=== PATIENT | female | born 1950 | race Caucasian/White ===

== ENCOUNTER 2016-10-03 06:28 | Day surgery (SDC) | payer MEDICARE ==
[~2016-10-03 06:28] MED LIST: Buffered Lidocaine 1% SYR 3ML* 3 ML/SYR SYRINGE INTRADERM ONE; Famotidine IV* 10 MG/ML 2 ML (20 mg) IV ONE; Metoclopramide TAB* 10 MG PO ONE
[2016-10-03] MEDS ORDERED: fentaNYL* 50 MCG/ML 2 ML VIAL (100 MCG VIAL) ONE (07:16)
[2016-10-03] MEDS ORDERED: Ondansetron INJ* 2 MG/ML VIAL ONE (07:16)
[2016-10-03] MEDS ORDERED: Ketorolac INJ* 30 MG/ML 1 ML VIAL ONE (07:16)
[2016-10-03] MEDS ORDERED: Midazolam* 1 MG/ML 5 ML VIAL (5 MG) ONE (07:16)
[2016-10-03] MEDS ORDERED: Dexamethasone IV* 4 MG/ML 1 ML (4 MG) ONE (07:16)
[2016-10-03] MEDS ORDERED: Lidocaine 2% PF * 5 ML VIAL ONE (07:16)
[2016-10-03] MEDS ORDERED: KETAMINE HCL* 50 MG/ML 10 ML VIAL ONE (07:16)
[2016-10-03] MEDS ORDERED: Propofol* 10 MG/ML 20 ML BTL IV PUSH ONE (07:16)
[2016-10-03] MEDS ORDERED: Buffered Lidocaine 1% SYR 3ML* 3 ML/SYR SYRINGE ONE (07:18)
[2016-10-03] MEDS ORDERED: Clindamycin 900 MG IVPREMIX(* 900 MG/50 ML SDV IV ONE (07:18)
[2016-10-03] MEDS ORDERED: Metoclopramide TAB* 10 MG ONE (07:18)
[2016-10-03] MEDS ORDERED: Famotidine IV* 10 MG/ML 2 ML (20 mg) ONE (07:18)
[2016-10-03] MEDS ORDERED: Bupivacaine 0.5% SDV PF* 30 ML VIAL ONE (07:46)
[2016-10-03] MEDS ORDERED: Lidocaine 2% PF* 10 ML AMP ONE (08:00)
[2016-10-03] MEDS ORDERED: oxyCODONE/Acetamin 5/325 MG* TAB PO PRN (08:37)
[2016-10-03] MEDS ORDERED: Ondansetron INJ* 2 MG/ML VIAL IV PRN (08:37)
[2016-10-03] MEDS ORDERED: fentaNYL* 50 MCG/ML 2 ML VIAL (100 MCG VIAL) IV PRN (08:37)
[2016-10-03] MEDS ORDERED: HYDROmorphone INJ* 1 MG/ML CARPUJECT SYRINGE IV PRN (08:37)
[2016-10-03] MEDS ORDERED: oxyCODONE/Acetamin 5/325 MG* TAB ONE (09:41)
[2016-10-03 11:41] VITALS: BP 135/80
--- NOTE | 2016-10-04 01:42 | OP ---
DATE OF OPERATION: 10/03/16 - [facility] DATE OF : 46 SURGEON: Alfredo Barajas MD FUEL MANAGER: Rozina Mercado PA-C ANESTHESIOLOGIST: Morales Pablo MD ANESTHESIA: MAC PRE-OP DIAGNOSIS: Painful mass, plantar aspect, left first MTP joint. POST-OP DIAGNOSIS: Painful mass, plantar aspect, left first MTP joint, possible heterotopic bone fragment. OPERATIVE PROCEDURE: Excision of mass, left plantar foot. DESCRIPTION OF PROCEDURE: The patient was taken to the operating room where I made a 3 cm longitudinal incision along the medial capsule of the first MTP joint. I dissected plantarward outside of the capsule and the sesamoid to locate the 1 x 1 flap bony foreign body. This was excised. I did not feel any attachment or other areas involved. This was irrigated and we closed with subcutaneous tissue with Vicryl, nylon for the skin and a compression dressing applied. [id number]/[facility] #: [id number] MTDD
== END 2016-10-03 11:45 | disposition home or self-care (01) ==
LOC: OR 06:28
PROVIDERS: ATTEND Orthopaedic Surgery
DX: R22.9 Localized swelling, mass and lump, unspecified (principal); M79.672 Pain in left foot; F17.210 Nicotine dependence, cigarettes, uncomplicated
CPT/HCPCS: 88304; 88311; A9270-GY; J1100; J1885; J2001; J2250; J2405; J2704; J3010

== ENCOUNTER 2018-04-12 08:39 | Inpatient (IN) | payer MEDICARE ==
--- NOTE | 2018-03-28 21:22 | HP ---
HISTORY AND PHYSICAL: DATE OF SURGERY: 04/12/18. DATE OF OFFICE VISIT: 03/19/18. SURGEON: Rossana Clark MD.* (DICTATED BY CHRISTOPHER COATS) PROCEDURE: Right total hip arthroplasty. CHIEF COMPLAINT: Right hip pain. HISTORY OF PRESENT ILLNESS: Ms. Garza is a 67-year-old female with complaints of right hip pain secondary to end-stage osteoarthritis. She has failed conservative treatment and elected to proceed with a right total hip arthroplasty, which is scheduled for 04/12/18. PAST MEDICAL HISTORY: Hypertension. PAST SURGICAL HISTORY: 1. Cholecystectomy. 2. Laparoscopy for tubal ligation. CURRENT MEDICATIONS: 1. Lisinopril/hydrochlorothiazide 10/12.5 daily. 2. Oxycodone 5 mg as needed. ALLERGIES: To PENICILLIN, SULFA, and BEE STINGS. FAMILY HISTORY: Uterine cancer. SOCIAL HISTORY: She is a 67-year-old female. She lives alone. She smokes approximately 4 cigarettes a day. Denies use of drugs or alcohol. REVIEW OF SYSTEMS: A complete 14-point review of systems was reviewed with the patient. She denies history of DVT, PE, hepatitis, HIV or anesthesia problems. PHYSICAL EXAMINATION GENERAL: She is a well-developed, well-nourished, in no acute distress. VITAL SIGNS: She stands 64 inches tall, weighs 199 pounds. Her blood pressure 124/82 and her heart rate is 78. HEENT: Normocephalic, atraumatic. NECK: Supple. No palpable lymph nodes. PULMONARY: Lungs are clear to auscultation bilaterally. CARDIAC: Regular rate and rhythm. Strong S1, S2. ABDOMEN: Soft, nontender, nondistended. MUSCULOSKELETAL: Right lower extremity, the skin is intact. There are no open wounds or abrasions. She walks with an antalgic type gait, favoring her right hip. She has decreased internal and external rotation of the right hip. She has 2+ dorsalis pedis pulses. Intact sensation to her lower extremity. Muscle group strengths were intact at 5/5. ASSESSMENT AND PLAN: Ms. Garza is a 67-year-old female with end-stage osteoarthritis of the right hip. She has failed conservative treatment and elected to proceed with a right total hip arthroplasty, which is scheduled for 04/12/[address] Clark discussed the risks and benefits of the surgery at today's visit and all of her questions were answered. She will follow up with Dr. Clark in 2 weeks after the surgery. CHRISTOPHER COATS [id number]/[facility] #: [id number] MTDArgenis
[~2018-04-12 08:39] MED LIST changes: +Acetaminophen IV 1GM/100ML * 1,000 MG/100 ML VIAL IVPB ONE; +Buffered Lidocaine 0.9% SYRIN* 5 ML/SYR SYRINGE INTRADERM ONE; -Buffered Lidocaine 1% SYR 3ML* 3 ML/SYR SYRINGE INTRADERM ONE; +Dexamethasone IV* 4 MG/ML 1 ML (4 MG) IV SLOW PU ONE; +Gabapentin CAP(*) 300 MG PO ONE; -Metoclopramide TAB* 10 MG PO ONE; +celeCOXIB CAP* 200 MG PO ONE
--- OUTSIDE RECORDS SUMMARY | 2018-04-12 08:44 | XMS REPORT ---
:1950 External Reference #:[id number] Author Organization [facility] 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 Kelly Plaza MD Primary Care Physician Unavailable Payers Type Date Identification Numbers Payment Provider Subscriber Commercial Policy Number: [id number] [employer] Estrella Garza PayID: [id number] [address] [address] [place] [address] Problems Date Description Provider Status Onset: 03/26/2012 Benign essential hypertension Adrienne Rao, Active MSN, [employer] Onset: 03/26/2012 Tobacco user Adrienne Rao, Active MSN, [employer] Onset: 12/04/2017 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 Onset: 08/25/2011 Osteochondropathy Cheyenne Ryan, [employer]OVEMENT INTERN Active Onset: 03/26/2018 Chronic obstructive lung disease ANDREW Cortez-BC, Active [employer], Ibclc Onset: 03/26/2012 Dyspnea Adrienne Rao, Resolved MSN, [employer] Resolved: 03/25/2018 Onset: 03/26/2012 Chest pain YOLIE Gonzalez, [employer] Resolved Resolved: 03/25/2018 Onset: 03/26/2012 Edema YOLIE Gonzalez, [employer] Resolved Resolved: 03/25/2018 Onset: 12/04/2017 Essential hypertension Kelly Plaza MD Resolved Resolved: 03/25/2018 Family History Date Family Member(s) Problem(s) Comments Father due to Motor Vehicle Accident () Mother due to Natural Causes () Social History Type Date Description Comments Lives With Alone Diet Patient follows no dietary restrictions Pets farm animals, cats and dogs 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 ADL's/IADL's Independent with all ADL's ADL's/IADL's Independent with all IADL's Hobbies Reading Cigarette Use Current Cigarette Smoker 1 Pack Daily 1 1/2 -2 ppd x 55 yrs ETOH Use Denies alcohol use Smoking Light tobacco smoker (10 or fewer cigarettes/day) Daily Caffeine Consumes on average 5 cups of regular coffee per day Allergies, Adverse Reactions, Alerts Date Description Reaction Status Severity Comments 03/26/2012 Penicillins active 03/26/2012 Bee Sting active 03/26/2012 Sulfa Drugs active Medications Medication Date Status Form Strength Qnty SIG Indications Ordering Provider Aspirin 09/22/ Active Tablets 325mg 30tabs 2 Every 4 Katiuska 2016 Hours MD Holli Oxycodone HCL 03/25/ Active Capsules 5mg 120cap 1 by mouth Kelly 2014 s every 4 MD Bola hours as needed for severe pain Reference #: [id number] Lisinopril-Hy 03/25/ Active Tablets 10-12.5mg 90tabs take one I10 Kelly drochlorothia 2014 tablet by MD Bola zide mouth every day Naproxen 12/04/ Hx Capsules 220mg 2-3 tabs by Kelly Sodium 2017 - mouth MD Bola 03/26/ bidas 2018 needed with food or snack Advil 09/22/ Hx Capsules 200mg 4 Or 5 Katiuska 2016 - Times A Day MD Holli 2017 Lisinopril/Hy 04/25/ Hx Tablets 10-12.5mg 30tabs Take One 401.1 Wesley Bryant drochlorothia 2011 - Tablet By radha Weiss 03/25/ Mouth Every M.D., [facility] 2014 Day Fosamax / Hx Tablets 35mg 1 po qweek Unknown 0000 Vital Signs Date Vital Result Comment 03/26/2018 BP Systolic 112 mmHg BP Diastolic 68 mmHg Body Temperature 97.2 F Heart Rate 79 /min Respiratory Rate 18 /min Height 65 inches 5'5" Weight 200.00 lb BMI (Body Mass Index) 33.3 kg/m2 BSA (Body Surface Area) 1.98 m2 Dike body weight in kilograms 57 O2 % BldC Oximetry 93 % 12/04/2017 BP Systolic 148 mmHg BP Diastolic 94 mmHg BP Systolic Sitting Right Arm 129 mmHg BP Diastolic Sitting Right Arm 72 mmHg Body Temperature 97.3 F Heart Rate 75 /min Respiratory Rate 16 /min Height 65 inches 5'5" Weight 210.00 lb BMI (Body Mass Index) 34.9 kg/m2 BSA (Body Surface Area) 2.02 m2 Dike body weight in kilograms 57 O2 % BldC Oximetry 96 % 10/06/2015 BP Systolic 120 mmHg BP Diastolic 76 mmHg Body Temperature 98.2 F Height 65 inches 5'5" Weight 205.38 lb BMI (Body Mass Index) 34.2 kg/m2 BSA (Body Surface Area) 2.00 m2 09/22/2015 BP Systolic 120 mmHg BP Diastolic 74 mmHg Height 65 inches 5'5" Weight 204.38 lb BMI (Body Mass Index) 34.0 kg/m2 BSA (Body Surface Area) 2.00 m2 06/18/2012 BP Systolic Sitting Left Arm 128 mmHg BP Diastolic Sitting Left Arm 78 mmHg Heart Rate 72 /min Respiratory Rate 16 /min Height 65 inches 5'5" Weight 212.00 lb BMI (Body Mass Index) 35.3 kg/m2 04/25/2012 BP Systolic Sitting Right Arm 140 mmHg BP Diastolic Sitting Right Arm 76 mmHg BP Systolic Sitting Left Arm 136 mmHg BP Diastolic Sitting Left Arm 82 mmHg Heart Rate 76 /min Regular Respiratory Rate 18 /min Height 65 inches 5'5" Weight 212.00 lb BMI (Body Mass Index) 35.3 kg/m2 03/26/2012 BP Systolic Sitting Right Arm 146 mmHg BP Diastolic Sitting Right Arm 86 mmHg Heart Rate 80 /min Respiratory Rate 16 /min Height 65 inches 5'5" Weight 211.00 lb BMI (Body Mass Index) 35.1 kg/m2 Results Test Date Test Result H/L Range Note Laboratory test 03/26/2018 Thyroid Stim Hormone 0.05 uIU/mL Low 0.30-4.20 1 finding Glycohemoglobin A1c 03/26/2018 Glycohemoglobin (A1c) 5.7 % 4.2-6.3 1, 2 eAG 117 mg/dL 1 CBS W/Automated Diff 03/26/2018 White Blood Count 5.3 K/uL 3.1-10.7 1 Red Blood Count 5.24 M/uL 3.90-5.40 1 Hemoglobin 16.7 gm/dL High 11.6-15.8 1 Hematocrit 47.7 % High 36.0-46.1 1 Mean Cell Volume 91.0 fl 80.9-99.0 1 Mean Corpuscular HGB 31.9 pg 25.9-32.7 1 Mean Corpuscular HGB Conc 35.0 g/dL High 30.8-34.3 1 Platelet Count 175 K/uL 155-360 1 Red Cell Distri Width SD 42.6 fl 3-47 1 Red Cell Distri Width %CV 13.2 % 11.7-14.4 1 Mean Platelet Volume 11.5 fL 8.9-12.4 1 Neut% 59.1 % 40.4-72.8 1 Lymph % 31.5 % 20.0-42.0 1 Barnwell % 7.1 % 4.3-13.2 1 Eo% 1.9 % 0.0-6.6 1 Bas% 0.4 % 0.0-1.1 1 Neut# 3.15 K/uL 1.8-7.0 1 Lymph # 1.68 K/uL 1.0-4.0 1 Barnwell # 0.38 K/uL 0.3-0.9 1 Eos # 0.10 K/uL 0.0-0.5 1 Baso # 0.02 K/uL 0.0-0.1 1 Comprehensive Metabolic Panel 03/26/2018 Glucose 105 mg/dL 74-106 1 BUN 17 mg/dL 7-18 1 Creatinine 0.9 mg/dL 0.6-1.3 1 Glom Filtration Rate, Estimate >60 mL/min >60 1 If >60 mL/min >60 1, 3 BUN/Creat 18.8 ratio 1 Sodium 143 mmol/L 136-145 1 Potassium 4.2 mmol/L 3.5-5.1 1 Chloride 109 mmol/L High 98-107 1 Carbon Dioxide 26 mmol/L 21-32 1 Anion Gap 8 mEq/L 8-16 1 Calcium 9.3 mg/dL 8.5-10.1 1 Total Protein 7.9 g/dL 6.4-8.2 1 Albumin 4.0 g/dL 3.4-5.0 1 Globulin 3.9 g/dL 1.9-4.3 1 Alb/Glob 1.0 ratio 1 Bilirubin,Total 0.4 mg/dL 0.2-1.0 1 Sgot/Ast 22 U/L 15-37 1 SGPT/Alt 36 U/L 12-78 1 Alkaline Phosphatase 87 U/L 45-117 1 Laboratory test finding 09/22/2015 C-Reactive Protein,Quant 3.9 mg/L High <3.0 Magnesium 1.9 mg/dL 1.8-2.4 Sedimentation Rate 4 mm/hr 0-30 Thyroid Stim Hormone 0.52 uIU/mL 0.36-3.74 Basic Metabolic Panel 09/22/2015 Glucose 96 mg/dL 74-106 BUN 15 mg/dL 7-18 Creatinine 1.1 mg/dL 0.6-1.3 Glom Filtration Rate, Estimate 53 mL/min >60 If >60 mL/min >60 4 BUN/Creat 13.6 ratio Sodium 139 mmol/L 136-145 Potassium 3.4 mmol/L Low 3.5-5.1 Chloride 103 mmol/L 98-107 Carbon Dioxide 30 mmol/L 21-32 Anion Gap 6 mEq/L Low 8-16 Calcium 9.2 mg/dL 8.5-10.1 LDL Cholesterol Profile 09/22/2015 Cholesterol 169 mg/dL <200 5 Triglycerides 293 mg/dL High <150 6 HDL Cholesterol 43 mg/dL >40 7 LDL-Cholesterol 67 mg/dL < 100 8 CBC W/Automated Diff 09/22/2015 White Blood Count 6.8 K/uL 3.1-10.7 Red Blood Count 5.21 M/uL 3.90-5.40 Hemoglobin 16.4 gm/dL High 11.6-15.8 Hematocrit 47.2 % High 36.0-46.1 Mean Cell Volume 90.6 fl 80.9-99.0 Mean Corpuscular HGB 31.5 pg 25.9-32.7 Mean Corpuscular HGB Conc 34.7 g/dL High 30.8-34.3 Platelet Count 204 K/uL 155-360 Red Cell Distri Width SD 41.8 fl 3-47 Red Cell Distri Width %CV 12.7 % 11.7-14.4 Mean Platelet Volume 11.5 fL 8.9-12.4 Neut% 61.0 % 40.4-72.8 Lymph % 29.4 % 17.0-46.1 Barnwell % 7.0 % 4.3-13.2 Eo% 2.2 % 0.0-6.6 Bas% 0.4 % 0.0-1.1 Neut# 4.16 K/uL 1.8-7.0 Lymph # 2.01 K/uL 1.8-7.0 Barnwell # 0.48 K/uL 0.3-0.9 Eos # 0.15 K/uL 0.0-0.5 Baso # 0.03 K/uL 0.0-0.1 1 E66.9 2 Elevated levels of HbA1c suggest the need for more aggressive treatment of glycemia. The [place] [employer] recommends that a primary goal of therapy should be a HbA1c of <7% and that physicians should re-evaluate the treatment regimen in patients with HbA1c values consistently >8%. 3 Note: Persistent reduction for 3 months or more in an eGFR <60 mL/min/1.73 m2 defines CKD. Patients with eGFR values >/=60 mL/min/1.73 m2 may also have CKD if evidence of persistent proteinuria is present. The original MDRD equation for estimated GFR is not valid for patients less than 18 years of age. Additional information may be found at www.kdoqi.org. 4 Note: Persistent reduction for 3 months or more in an eGFR <60 mL/min/1.73 m2 defines CKD. Patients with eGFR values >/=60 mL/min/1.73 m2 may also have CKD if evidence of persistent proteinuria is present. The original MDRD equation for estimated GFR is not valid for patients less than 18 years of age. Additional information may be found at www.kdoqi.org. 5 Reference Guidelines*: Desirable: ........... < 200 mg/dL Borderline High: ..... 200-239 mg/dL High: ................ >=240 mg/dL * The National Cholesterol Education Program (NCEP) 6 Reference Guidelines*: Normal: ............. < 150 mg/dL Borderline High: .... 150-199 mg/dL High: ............... 200-499 mg/dL Very High: .......... > 500 mg/dL * Source: National Cholesterol Education Program (NCEP) 7 Reference Guidelines*: Low HDL: ..... < 40 mg/dL Normal: ..... 40-60 mg/dL Desirable: ... > 60 mg/dL *The National Cholesterol Education Program(NCEP) 8 Reference Guidelines*: Optimal:........... <100 mg/dL Near Optimal....... 100-129 mg/dL Borderline High.... 130-159 mg/dL High............... 160-189 mg/dL Very High.......... >=190 mg/dL * Source: National Cholesterol Education Program (NCEP) Procedures Date CPT Code Description Status Comment 12/04/2017 Mammogram Completed 12/04/2017 Bone Mineral Density Test Completed 08/28/2013 Colonoscopy Completed [facility] 04/11/2012 26010 Stress Test Interpre And Report Only Completed 04/11/2012 82927 Stress Test Physician Super Only Completed 04/11/2012 43773 Stress Test Physician Super Only Completed 04/11/2012 76473 Myocardial Imaging Tomographic Multiple Study Completed [facility] 03/26/2012 69956 EKG-Tracing And Report Completed 03/26/2012 17516 EKG-Tracing And Report Completed 02/21/2012 20654 Exc.Adam.Lesion/0.6 To 1.0 cm Completed Encounters Type Date Location Provider CPT E/M Dx Office Visit 03/26/2018 8:30a Family Medicine Lisa Lanza, PNP-BC, 60553 Z01.818 [employer], Ibclc E66.9 F17.210 I10 Office Visit 12/04/2017 1:30p Family Medicine Kelly Plaza MD G0439 Z00.01 M51.06 I10 F17.210 R07.9 Office Visit 10/06/2015 10:30a [place] [address] M25.551 M54.5 Office Visit 09/22/2015 1:30p [place] [address] M25.551 R07.89 R00.2 M54.5 Office Visit 06/18/2012 8:30a Cardiology Office Adrienne Rao, 10645 401.1 MSN, [employer] 786.05 305.1 Office Visit 04/25/2012 11:00a Cardiology Office Adrienne Rao, 27826 401.1 MSN, [employer] 786.05 Office Visit 03/26/2012 3:10p Cardiology Office Adrienne Rao, 83575 305.1 MSN, [employer] Plan of Care 03/26/2018 - Lisa Lanza, PNP-BC, [employer], [id number] Encounter for other preprocedural examinationComments:Pt. cleared for Right hip replacement under general anesthesia.E66.9 Obesity, unspecifiedNew Labs:LDL Cholesterol ProfileT7/ TSHComments:you are down 10 pounds from your last visit here...good job! Keep it up.F17.210 Nicotine dependence, cigarettes, uncomplicatedComments:I'm glad you have cut down but keep trying to quit. if you want help let us know.I10 Essential (primary) hypertensionComments:looks good today!
--- OUTSIDE RECORDS SUMMARY | 2018-04-12 08:44 | XMS REPORT ---
:1950 External Reference #:[id number] Author Organization [facility] Address [address], [address] [place] [address] Phone [phone] Care Team Providers Name Role Phone Kelly Plaza MD Care Team Information Last Picker Unavailable Kelly Plaza MD Primary Care Physician Unavailable Payers Type Date Identification Numbers Payment Provider Subscriber Commercial Policy Number: [id number] [employer] Estrella Garza PayID: [id number] [address] [address] [place] [address] Problems Date Description Provider Status Onset: 03/26/2012 Benign essential hypertension Adrienne Rao, Active MSN, MAIL MANAGER Onset: 03/26/2012 Tobacco user Adrienne Rao, Active MSN, MAIL MANAGER Onset: 12/04/2017 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 Onset: 08/25/2011 Osteochondropathy Cheyenne Ryan, PODIATRIC SURGEON Active Onset: 03/26/2018 Chronic obstructive lung disease ANDREW Cortez-BC, Active MAIL MANAGER, Ibclc Onset: 03/26/2012 Dyspnea Adrienne Rao, Resolved MSN, MAIL MANAGER Resolved: 03/25/2018 Onset: 03/26/2012 Chest pain YOLIE Gonzalez, MAIL MANAGER Resolved Resolved: 03/25/2018 Onset: 03/26/2012 Edema YOLIE Gonzalez, MAIL MANAGER Resolved Resolved: 03/25/2018 Onset: 12/04/2017 Essential hypertension [...] as needed for severe pain Reference #: [id number] Lisinopril-Hy 03/25/ Active Tablets 10-12.5mg 90tabs take [...] By radha Weiss 03/25/ Mouth Every M.D., [facility] 2014 Day Fosamax / Hx Tablets 35mg 1 po qweek Unknown 0000 Vital Signs Date Vital Result Comment 03/26/2018 BP Systolic 112 mmHg BP Diastolic 68 mmHg Body Temperature 97.2 F Heart Rate 79 /min Respiratory Rate 18 /min Height 65 inches 5'5" Weight 200.00 lb BMI (Body Mass Index) 33.3 kg/m2 BSA (Body Surface Area) 1.98 m2 [place] body weight in kilograms 57 O2 % [...] kg/m2 BSA (Body Surface Area) 2.02 m2 [place] body weight in kilograms 57 O2 % [...] Test Date Test Result H/L Range Note Inr/Protime 03/30/2018 Inr 0.99 0.77-1.02 Laboratory test finding 03/30/2018 Partial Thrombo 34.1 seconds 26.0- 36.3 Time PTT CBC Auto Diff 03/30/2018 White Blood Count 5.8 10^3/uL 3.5-10.8 Red Blood Count 5.01 10^6/uL 4.00-5.40 Hemoglobin 15.8 g/dL 12.0-16.0 Hematocrit 45 % 35-47 Mean Corpuscular Volume 90 fL 80-97 Mean Corpuscular Hemoglobin 32 pg High 27-31 Mean Corpuscular HGB Conc 35 g/dL 31-36 Red Cell Distribution Width 13 % 10.5-15 Platelet Count 156 10^3/uL 150-450 Mean Platelet Volume 8.6 um3 7.4-10.4 Abs Neutrophils 3.4 10^3/uL 1.5-7.7 Abs Lymphocytes 1.7 10^3/uL 1.0-4.8 Abs Monocytes 0.4 10^3/uL 0-0.8 Abs Eosinophils 0.1 10^3/uL 0-0.6 Abs Basophils 0 10^3/uL 0-0.2 Abs Nucleated RBC 0.1 10^3/uL Granulocyte % 59.6 % 38-83 Lymphocyte % 30.1 % 25-47 Monocyte % 7.3 % High 0-7 Eosinophil % 2.3 % 0-6 Basophil % 0.7 % 0-2 Nucleated Red Blood Cells % 1.0 Type & Screen 03/30/2018 Patient Blood Type A Positive Antibody Screen NEGATIVE Urinalysis Profile 03/30/2018 Urine Color Yellow Urine Appearance Clear Urine Specific [place] 1.012 1.010-1.030 Urine pH 5.0 5-9 Urine Urobilinogen Negative Negative Urine Ketones Negative Negative Urine Protein Negative Negative Urine Leukocytes Negative Negative Urine Blood 1+ Negative Urine Nitrite Negative Negative Urine Bilirubin Negative Negative Urine Glucose Negative Negative Urine White Blood Cell Trace(0-5/hpf) Absent Urine Red Blood Cell Trace(0-2/hpf) Absent Urine Bacteria 1+ Absent Urine Squamous Epithelial Cell Present Absent Comp Metabolic Panel 03/30/2018 Sodium 142 mmol/L 135-145 Potassium 3.5 mmol/L 3.5-5.0 Chloride 107 mmol/L 101-111 Co2 Carbon Dioxide 26 mmol/L 22-32 Anion Gap 9 mmol/L 2-11 Glucose 89 mg/dL 70-100 Blood Urea Nitrogen 13 mg/dL 6-24 Creatinine 0.72 mg/dL 0.51-0.95 BUN/Creatinine Ratio 18.1 8-20 Calcium 9.5 mg/dL 8.6-10.3 Total Protein 6.6 g/dL 6.4-8.9 Albumin 4.2 g/dL 3.2-5.2 Globulin 2.4 g/dL 2-4 Albumin/Globulin Ratio 1.8 1-3 Total Bilirubin 0.60 mg/dL 0.2-1.0 Alkaline Phosphatase 73 U/L 34-104 Alt 18 U/L 7-52 Ast 14 U/L 13-39 Egfr Non- 80.3 >60 Egfr 97.2 >60 1 Comprehensive Metabolic Panel 03/26/2018 Glucose 105 mg/dL 74-106 2 BUN 17 mg/dL 7-18 2 Creatinine 0.9 mg/dL 0.6-1.3 2 Glom Filtration Rate, Estimate >60 mL/min >60 2 If >60 mL/min >60 2, 3 BUN/Creat 18.8 ratio 2 Sodium 143 mmol/L 136-145 2 Potassium 4.2 mmol/L 3.5-5.1 2 Chloride 109 mmol/L High 98-107 2 Carbon Dioxide 26 mmol/L 21-32 2 Anion Gap 8 mEq/L 8-16 2 Calcium 9.3 mg/dL 8.5-10.1 2 Total Protein 7.9 g/dL 6.4-8.2 2 Albumin 4.0 g/dL 3.4-5.0 2 Globulin 3.9 g/dL 1.9-4.3 2 Alb/Glob 1.0 ratio 2 Bilirubin,Total 0.4 mg/dL 0.2-1.0 2 Sgot/Ast 22 U/L 15-37 2 SGPT/Alt 36 U/L 12-78 2 Alkaline Phosphatase 87 U/L 45-117 2 CBS W/Automated Diff 03/26/2018 White Blood Count 5.3 K/uL 3.1-10.7 2 Red Blood Count 5.24 M/uL 3.90-5.40 2 Hemoglobin 16.7 gm/dL High 11.6-15.8 2 Hematocrit 47.7 % High 36.0-46.1 2 Mean Cell Volume 91.0 fl 80.9-99.0 2 Mean Corpuscular HGB 31.9 pg 25.9-32.7 2 Mean Corpuscular HGB Conc 35.0 g/dL High 30.8-34.3 2 Platelet Count 175 K/uL 155-360 2 Red Cell Distri Width SD 42.6 fl 3-47 2 Red Cell Distri Width %CV 13.2 % 11.7-14.4 2 Mean Platelet Volume 11.5 fL 8.9-12.4 2 Neut% 59.1 % 40.4-72.8 2 Lymph % 31.5 % 20.0-42.0 2 [place] % 7.1 % 4.3-13.2 2 Eo% 1.9 % 0.0-6.6 2 Bas% 0.4 % 0.0-1.1 2 Neut# 3.15 K/uL 1.8-7.0 2 Lymph # 1.68 K/uL 1.0-4.0 2 Sutton # 0.38 K/uL 0.3-0.9 2 Eos # 0.10 K/uL 0.0-0.5 2 Baso # 0.02 K/uL 0.0-0.1 2 Glycohemoglobin A1c 03/26/2018 Glycohemoglobin (A1c) 5.7 % 4.2-6.3 2, 4 eAG 117 mg/dL 2 Laboratory test finding 03/26/2018 Thyroid Stim Hormone 0.05 uIU/mL Low 0.30-4.20 2 Laboratory test finding 09/22/2015 C-Reactive 3.9 mg/L High <3.0 Protein,Quant Magnesium 1.9 mg/dL 1.8-2.4 Sedimentation Rate 4 mm/hr 0-30 Thyroid Stim Hormone 0.52 uIU/mL 0.36-3.74 Basic Metabolic Panel 09/22/2015 Glucose 96 mg/dL 74-106 BUN 15 mg/dL 7-18 Creatinine 1.1 mg/dL 0.6-1.3 Glom Filtration Rate, Estimate 53 mL/min >60 If >60 mL/min >60 5 BUN/Creat 13.6 ratio Sodium 139 mmol/L 136-145 Potassium 3.4 mmol/L Low 3.5-5.1 Chloride 103 mmol/L 98-107 Carbon Dioxide 30 mmol/L 21-32 Anion Gap 6 mEq/L Low 8-16 Calcium 9.2 mg/dL 8.5-10.1 LDL Cholesterol Profile 09/22/2015 Cholesterol 169 mg/dL <200 6 Triglycerides 293 mg/dL High <150 7 HDL Cholesterol 43 mg/dL >40 8 LDL-Cholesterol 67 mg/dL < 100 9 CBC W/Automated Diff 09/22/2015 White Blood Count [...] % 40.4-72.8 Lymph % 29.4 % 17.0-46.1 Sutton % 7.0 % 4.3-13.2 Eo% 2.2 % 0.0-6.6 Bas% 0.4 % 0.0-1.1 Neut# 4.16 K/uL 1.8-7.0 Lymph # 2.01 K/uL 1.8-7.0 Sutton # 0.48 K/uL 0.3-0.9 Eos # 0.15 K/uL 0.0-0.5 Baso # 0.03 K/uL 0.0-0.1 1 Because ethnic data is not always readily available, this report includes an eGFR for both -Americans and non- Americans. The National Kidney Disease Education Program (NKDEP) does not endorse the use of the MDRD equation for patients that are not between the ages of 18 and 70, are , have extremes of body size, muscle mass, or nutritional status, or are non- or non-. According to the National Kidney Foundation, irrespective of diagnosis, the stage of the disease is based on the level of kidney function: Stage Description GFR(mL/min/1.73 m(2)) 1 Kidney damage with normal or decreased GFR 90 2 Kidney damage with mild decrease in GFR 60-89 3 Moderate decrease in GFR 30-59 4 Severe decrease in GFR 15-29 5 Kidney failure <15 (or dialysis) 2 E66.9 3 Note: Persistent reduction for 3 months or more in an eGFR <60 mL/min/1.73 m2 defines CKD. Patients with eGFR values >/=60 mL/min/1.73 m2 may also have CKD if evidence of persistent proteinuria is present. The original MDRD equation for estimated GFR is not valid for patients less than 18 years of age. Additional information may be found at www.kdoqi.org. 4 Elevated levels of HbA1c suggest the need for more aggressive treatment of glycemia. The [place] Diabetes Association recommends that a primary goal of therapy should be a HbA1c of <7% and that physicians should re-evaluate the treatment regimen in patients with HbA1c values consistently >8%. 5 Note: Persistent reduction for 3 months or more in an eGFR <60 mL/min/1.73 m2 defines CKD. Patients with eGFR values >/=60 mL/min/1.73 m2 may also have CKD if evidence of persistent proteinuria is present. The original MDRD equation for estimated GFR is not valid for patients less than 18 years of age. Additional information may be found at www.kdoqi.org. 6 Reference Guidelines*: Desirable: ........... < 200 mg/dL Borderline High: ..... 200-239 mg/dL High: ................ >=240 mg/dL * The National Cholesterol Education Program (NCEP) 7 Reference Guidelines*: Normal: ............. < 150 mg/dL Borderline High: .... 150-199 mg/dL High: ............... 200-499 mg/dL Very High: .......... > 500 mg/dL * Source: National Cholesterol Education Program (NCEP) 8 Reference Guidelines*: Low HDL: ..... < 40 mg/dL Normal: ..... 40-60 mg/dL Desirable: ... > 60 mg/dL *The National Cholesterol Education Program(NCEP) 9 Reference Guidelines*: Optimal:........... <100 mg/dL Near Optimal....... 100-129 mg/dL Borderline High.... 130-159 mg/dL High............... 160-189 mg/dL Very High.......... >=190 mg/dL * Source: National Cholesterol Education Program (NCEP) Procedures Date CPT Code Description Status Comment 12/04/2017 Mammogram Completed 12/04/2017 Bone Mineral Density Test Completed 08/28/2013 Colonoscopy Completed [facility] 04/11/2012 88326 Stress Test Interpre And Report Only Completed 04/11/2012 36173 Stress Test Physician Super Only Completed 04/11/2012 10475 Stress Test Physician Super Only Completed 04/11/2012 37306 Myocardial Imaging Tomographic Multiple Study Completed AT [facility] 03/26/2012 09880 EKG-Tracing And Report Completed 03/26/2012 77308 EKG-Tracing And Report Completed 02/21/2012 51662 Exc.Adam.Lesion/0.6 To 1.0 cm Completed Encounters Type Date Location Provider CPT E/M Dx Office Visit 03/26/2018 8:30a Family Medicine ANDREW Cortez-BC, 74389 Z01.818 MAIL MANAGER, Ibclc E66.9 F17.210 I10 Office Visit 12/04/2017 1:30p Family Medicine Kelly Plaza MD G0439 Z00.01 M51.06 I10 F17.210 R07.9 Office Visit 10/06/2015 10:30a [place] [address] M25.551 M54.5 Office Visit 09/22/2015 1:30p [place] [address] M25.551 R07.89 R00.2 M54.5 Office Visit 06/18/2012 8:30a Cardiology Office Adrienne Rao, 68924 401.1 MSN, MAIL MANAGER 786.05 305.1 Office Visit 04/25/2012 11:00a Cardiology Office Adrienne Rao 75405 401.1 MSN, MAIL MANAGER 786.05 Office Visit 03/26/2012 3:10p Cardiology Office Adrienne Rao, 69672 305.1 MSN, MAIL MANAGER Plan of Care 03/26/2018 - ANDREW Cortez-BC, MAIL MANAGER, FzcemS73.818 Encounter for other preprocedural examinationComments:Pt. cleared for [...]
--- OUTSIDE RECORDS SUMMARY | 2018-04-12 08:44 | XMS REPORT ---
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 Active disc without myelopathy Onset: 02/12/2016 Localized, primary osteoarthritis of Rossana Clark M.D. Active the pelvic region and thigh Onset: 01/11/2018 Lumbar radiculopathy Chepe Kelly MD Active Onset: 01/11/2018 Low back pain Chepe Kelly MD Active Family History Date Family Member(s) Problem(s) Comments General No Current Problems Social History Type Date Description Comments Occupation [employer] Use Denies alcohol use of significance (less than once per month). Smoking Patient is a current smoker, one ppd.-50 years smokes every day Exercise Type/Frequency Does not exercise Allergies, Adverse Reactions, Alerts Date Description Reaction Status Severity Comments 09/28/2011 Penicillin active 09/28/2011 Sulfa active 08/31/2016 Bee Sting active Medications Medication Date Status Form Strength Qnty SIG Indications Ordering Provider Oxycodone HCL Active Capsules 5mg 30caps Talke 1 to Fnu 018 2 tab Seemant, every 4 to MD 6 hrs as needed for pain . Oxycodone HCL Active Tablets 5mg 30tabs 1-2 tabs Alfredo 017 by mouth Karl, every 4-6 M.D. hours as needed No Active Hx Unknown Medications 017 - 017 Oxycodone HCL Hx Tablets 5mg 45tabs 1-2 by 721.3 Tawanda Valdez 014 - mouth four Pollack, times a M.D. 016 day as needed Flexeril Hx Tablets 10mg 30tabs take 1 po 715.15 Bart 012 - tid prn Phillips, M.D. 014 Lisinopril //0 Hx Tablets 2.5mg one po Unknown 000 - daily 016 Gabapentin 00/0 Hx Capsules 300mg Unknown 000 - 016 Hydrocodone-Ac /0 Hx Tablets 5-325mg As Unknown etaminophen 000 - directed 017 Oxycodone HCL 00/0 Hx Tablets 5mg As Unknown 000 - directed.. 017 Lisinopril-Hyd /0 Hx Tablets 10-12.5mg Unknown rochlorothiazi 000 - de 016 Vital Signs Date Vital Result Comment 03/19/2018 Height 64.5 inches 5'4.50" Weight 199.00 lb Heart Rate 78 /min BP Systolic 124 mmHg BP Diastolic 82 mmHg BMI (Body Mass Index) 33.6 kg/m2 10/12/2016 Height 66 inches 5'6" Weight 190.00 lb Heart Rate 74 /min BP Systolic 136 mmHg BP Diastolic 74 mmHg Respiratory Rate 18 /min Pain Level 4 BMI (Body Mass Index) 30.7 kg/m2 08/31/2016 Height 66 inches 5'6" Weight 190.00 lb BP Systolic 116 mmHg BP Diastolic 62 mmHg BMI (Body Mass Index) 30.7 kg/m2 02/12/2016 Height 66 inches 5'6" Weight 190.00 lb Pain Level 5 BMI (Body Mass Index) 30.7 kg/m2 01/05/2016 Height 66 inches 5'6" Weight 190.00 lb Heart Rate 80 /min BP Systolic Sitting 124 mmHg BP Diastolic Sitting 78 mmHg BMI (Body Mass Index) 30.7 kg/m2 Results Test Date Test Result H/L Range Note Laboratory test 10/03/2016 Surgical Pathology SEE RESULT BELOW 1 finding 1 SEE RESULT BELOW Name: ESTRELLA MORGAN : [address]: Alfredo Barajas MD Acct: [id number] Unit: [id number] AGE: 66 Location: OR Re10/03/16 SEX: F Status: ESPERANZA HASSAN SPEC: [id number] KADY: 10/03/[address] [facility] [address]: Alfredo Barajas MD REQ: [id number] RECD: 10/03/16 STATUS: KAYCEET _ ORDERED: Rogelio, LEVEL III FINAL DIAGNOSIS Left foot, excision: -- Benign bone and fibrovascular tissue. PRE-OPERATIVE DIAGNOSIS Pain in left foot GROSS DESCRIPTION The specimen is received in formalin labeled, Soft Tissue Mass Left Foot, and consists of a 1.3 x 1.0 x 0.5 cm farias-white ovoid calcified tissue fragment. The specimen is inked, serially sectioned and entirely submitted in one cassette following decalcification. MICROSCOPIC DESCRIPTION . Signed (signature on file) Nikia Clark MD 05/14 1358 END OF REPORT * ML=Testing performed at Main Lab DEPARTMENT OF PATHOLOGY, [address] [place] [address] Cruzito Kendall M.D. Director [facility] # [id number] Procedures Date CPT Code Description Status 10/03/2016 68216 Unlisted Procedure, Foot Or Toes Completed 10/03/2016 06977 Unlisted Procedure, Foot Or Toes Completed Encounters Type Date Location Provider CPT E/M Dx Office Visit 01/11/2018 4:10p [facility] [place] [address] M54.5 AT [place] M54.16 M48.061 M16.11 Office Visit 08/31/2016 3:15p [facility] Barajas 09893 M79.672 [facility] Office Visit 02/12/2016 2:00p [facility] Rossana Clark M.D. 83173 M16.11 [facility] M25.551 M46.1 M54.5 Office Visit 01/05/2016 10:00a [facility] [address]1949 M79.672 [facility] Office Visit 01/01/2014 1:40p Neurosurgery Services Tawanda Santa 74427 721.3 Of [facility] 722.10 Office Visit 09/28/2011 9:00a [facility] Phillips M.D. 81922 715.15 [facility] Plan of Care Future Appointment(s):04/20/2018 8:15 am - Rossana Clark M.D. at [facility]04/12/2018 10:00 am - Rossana Clark M.D. at [facility]03/19/2018 - Rossana Clark M.D.M25.551 Pain in right hipM16.11 Unilateral primary osteoarthritis, right hipFollow up:Follow up: 10- 14 days fkbkgtT62.061 Spinal stenosis, lumbar region without neurogenic zyydwG89.16 Radiculopathy, lumbar region
[2018-04-12] MEDS ORDERED: Famotidine IV* 10 MG/ML 2 ML (20 mg) ONE (09:09)
[2018-04-12] MEDS ORDERED: celeCOXIB CAP* 100 MG ONE (09:09)
[2018-04-12] MEDS ORDERED: Dexamethasone IV* 4 MG/ML 1 ML (4 MG) ONE (09:09)
[2018-04-12] MEDS ORDERED: Gabapentin CAP(*) 300 MG ONE (09:10)
[2018-04-12] MEDS ORDERED: Levalbuterol 0.63MG/3ML NEB* UNIT OF USE INH ONE ×2 (09:49)
[2018-04-12] MEDS ORDERED: Naloxone* 0.4 MG/ML 1 ML VIAL IV PRN (09:49)
[2018-04-12] MEDS ORDERED: Scopolamine 1.5 mg* PATCH TRANSDERM PRN (09:49)
[2018-04-12] MEDS ORDERED: oxyCODONE/Acetamin 5/325 MG* TAB PO PRN ×2 (09:49→14:09)
[2018-04-12] MEDS ORDERED: Ondansetron INJ* 2 MG/ML VIAL IV PRN ×2 (09:49→14:09)
[2018-04-12] MEDS ORDERED: DiMENhydriNATE IV* 50 MG/ML VIAL IV PUSH PRN (09:49)
[2018-04-12] MEDS ORDERED: Acetaminophen IV 1GM/100ML * 100 ML ONE (09:52)
[2018-04-12] MEDS ORDERED: Lidocaine 2% PF * 5 ML VIAL ONE ×2 (10:02→11:15)
[2018-04-12] MEDS ORDERED: Bupivacaine 0.5% PF 10 ML VIAL INJ ONE (10:02)
[2018-04-12] MEDS ORDERED: fentaNYL* 50 MCG/ML 2 ML VIAL (100 MCG VIAL) ONE ×2 (10:02→13:49)
[2018-04-12] MEDS ORDERED: Midazolam* 1 MG/ML 10 ML VIAL (10 MG) ONE (10:02)
[2018-04-12] MEDS ORDERED: Ondansetron INJ* 2 MG/ML VIAL ONE (10:02)
[2018-04-12] MEDS ORDERED: Clindamycin 900 MG IVPREMIX(* 900 MG/50 ML SDV IV ONE (10:04)
[2018-04-12] MEDS ORDERED: Ropivacaine (OR use only) 2 MG/ML 10 ML ONE (10:08)
[2018-04-12] MEDS ORDERED: ROPIVACAINE 5 MG/ML 30 ML BTL (0.5%) ONE (10:08)
[2018-04-12] MEDS: fentaNYL* 50 MCG/ML 2 ML VIAL (100 MCG VIAL) IV PRN ×2 (13:51→14:16)
[2018-04-12] MEDS ORDERED: HYDROmorphone INJ* 0.5 MG/0.5 ML SYRINGE ONE (14:00)
[2018-04-12] MEDS: HYDROmorphone INJ* 0.5 MG/0.5 ML SYRINGE IV PRN ×2 (14:04→14:15)
[2018-04-12] MEDS ORDERED: Magnesium Hydroxide LIQ* 30 ML UDC PO PRN (14:09)
[2018-04-12] MEDS ORDERED: Cyclobenzaprine TAB* 10 MG PO PRN (14:09)
[2018-04-12] MEDS ORDERED: Bisacodyl SUPP* 10 MG SUPP PR PRN (14:09)
[2018-04-12] MEDS ORDERED: Morphine INJ** 4 MG/ML 1 ML CARPUJECT IV PRN (14:09)
[2018-04-12] MEDS ORDERED: diPHENhydraMINE IV* 50 MG/ML 1 ml VIAL (BENADRYL) IV PRN (14:09)
--- NOTE | 2018-04-12 14:39 | RAD ---
Indication: RIGHT total hip replacement. Comparison: December 26, 2017 Technique: LEFT lateral decubitus crosstable lateral AP view pelvis and RIGHT hip 1255 hours. Report: Acetabular component in place. Femoral test fit component/reamer in place. No periprosthetic fracture evident. Overlying soft tissue edema and emphysema. IMPRESSION: #. Intraoperative control film.
--- NOTE | 2018-04-12 15:04 | RAD ---
INDICATION: Postoperative right hip arthroplasty COMPARISON: December 26, 2017 TECHNIQUE: Portable crosstable lateral and AP imaging of the right hip was performed FINDINGS: The right hip prosthesis appears normally seated. There is no evidence of hardware failure. IMPRESSION: POSTOPERATIVE RIGHT HIP ARTHROPLASTY.
--- NOTE | 2018-04-12 15:05 | RAD ---
INDICATION: Right hip arthroplasty COMPARISON: December 26, 2017 TECHNIQUE: A single AP portable view of the pelvis is submitted. FINDINGS: There is right hip arthroplasty. The prosthesis appears normally seated. There are no other significant bony findings. The soft tissues show minor changes compatible with recent arthroplasty. IMPRESSION: SUSPECT RIGHT HIP ARTHROPLASTY. NO FINDINGS OF HARDWARE FAILURE.
[2018-04-12] MEDS ORDERED: Warfarin TAB(*) 6 MG PO ONE (18:30)
[2018-04-12] MEDS: Acetaminophen TAB* 325 MG PO SCH (18:34)
[2018-04-12] MEDS: Nicotine PATCH 14 MG/24 HR* PATCH TRANSDERM SCH (18:56)
--- NOTE | 2018-04-12 19:37 | CONS ---
CC: Dr. Kelly Plaza; Dr. Clark* CONSULTATION REPORT: DATE OF CONSULT: 04/12/2018. PRIMARY CARE PROVIDER: Dr. Kelly Plaza. REQUESTING PHYSICIAN: The consult was requested by Dr. Clark on a patient with postoperative hip replacement for medical management of hypertension. CHIEF COMPLAINT: "I still cannot move my feet." HISTORY OF PRESENT ILLNESS: Estrella Garza is a 67-year-old female with history of hypertension, as well as osteoarthritis, who is status post right hip total arthroplasty performed by Dr. Clark on 04/12/18. A consult was requested for postoperative medical management of hypertension. Currently, the patient is seen in the PACU. She has no complaints. Her epidural anesthesia is still in place. PAST MEDICAL HISTORY: Hypertension. PAST SURGICAL HISTORY: 1. History of cholecystectomy. 2. History of surgery for tubal . MEDICATIONS AT HOME: 1. Lisinopril/hydrochlorothiazide 10/12.5 mg daily. 2. Oxycodone 5 mg on a p.r.n. basis. ALLERGIES: PENICILLIN, SULFA, and BEE STINGS. FAMILY HISTORY: Positive for uterine cancer in mother. SOCIAL HISTORY: The patient lives alone. She smokes half-a-pack per day and she has done so ever since she turned 10. She denies any alcohol or drug use. Her surrogate is her son, Romario. REVIEW OF SYSTEMS: Please see history of present illness. All the remaining 14 systems were reviewed with the patient and they were otherwise negative. PHYSICAL EXAM: Blood pressure of 119/68, heart rate of 61 and regular, respiratory rate is 14, oxygen saturation 95% on room air, temperature of 96.8. General: The patient is a very pleasant 67-year-old female who is in no acute distress. Alert, awake, and oriented x3. HEENT: Head is atraumatic and normocephalic. Eyes: Pupils are equal, reactive to light and accommodation. Oropharynx is clear. Mucosa moist. Neck: Supple. No JVD. No bruit bilaterally. Cardiovascular: Regular rate and rhythm. No murmur. Respiratory : Clear to auscultation bilaterally. Abdomen: Soft, nontender. Bowel sounds present in all 4 quadrants. Extremities: There is no edema. Pulses are +2 bilaterally. No clubbing or cyanosis. Postoperative right hip with right thigh incision that was not evaluated or inspected due to postoperative dressings in place. Neuro Evaluation: Cranial nerves II through XII grossly intact. Motor strength is 5/5 bilaterally in bilateral upper and lower extremities. The patient is still under epidural anesthesia and she is not able to move bilateral lower extremities. Psychiatric Evaluation: Alert and oriented x3. No evidence of anxiety or depression. LABORATORY DATA: None currently. ASSESSMENT AND PLAN: 1. In regards to the patient's right hip surgery, management as per orthopedic surgeon with Dr. Clark. 2. In regards to the patient's hypertension, for the time being, her lisinopril /hydrochlorothiazide is going to be held. It may be able to be restarted a day after surgery, but for the time being and due to possibility of postoperative hypotension, that is going to be held. 3. For DVT prophylaxis, the patient is going to be continued on Lovenox as well as Coumadin as started by Orthopedic Surgery. 4. The patient's code status is full and her surrogate is her son. TIME SPENT: Approximately 55 minutes was spent on evaluation of this patient, more than half the time was spent [id number] with the patient during the interview, and physical exam. [id number]/CPS #: [id number] MTDD
[2018-04-12] MEDS: Clindamycin 600 MG IVPREMIX(* 600 MG/50 ML SDV IV SCH (20:08)
[2018-04-12] MEDS: oxyCODONE/Acetamin 5/325 MG* TAB PO PRN (20:38)
[2018-04-12] MEDS: Magnesium Hydroxide LIQ* 30 ML UDC PO SCH (20:42)
[2018-04-12] MEDS: Nicotine Patch Removal NOTE FOLLOW UP SCH (20:42)
[2018-04-12] MEDS: Docusate CAP* 100 MG PO SCH (20:42)
[2018-04-13] MEDS: Clindamycin 600 MG IVPREMIX(* 600 MG/50 ML SDV IV SCH ×2 (03:18→11:05)
[2018-04-13] MEDS: Acetaminophen TAB* 325 MG PO SCH ×3 (03:58→17:01)
[2018-04-13] MEDS: oxyCODONE/Acetamin 5/325 MG* TAB PO PRN ×3 (05:27→19:38)
[2018-04-13 05:48] LABS: Hematocrit 38 % (35-47); Hemoglobin 13.3 g/dl (12.0-16.0); Mean Platelet Volume 8.8 um3 (7.4-10.4); Platelet Count 173 10^3/ul (150-450)
[2018-04-13 05:53] LABS: INR 1.05 (0.77-1.02)
[2018-04-13 06:02] LABS: EGFR Non-African American 72.2 (>60)
[2018-04-13] MEDS: Nicotine PATCH 14 MG/24 HR* PATCH TRANSDERM SCH ×2 (06:25→09:22)
--- NOTE | 2018-04-13 08:46 | RAD ---
HISTORY: pain postop rtha COMPARISONS: None VIEWS: 2, Frontal and lateral views of the right knee FINDINGS: BONE DENSITY: Normal. BONES: There is no displaced fracture. There is a small superior patellar enthesophyte. JOINTS: There is no arthropathy. There is no suprapatellar joint effusion or lipohemarthrosis. ALIGNMENT: There is no dislocation. SOFT TISSUES: Unremarkable. OTHER FINDINGS: None. IMPRESSION: NO ACUTE OSSEOUS INJURY. IF SYMPTOMS PERSIST, RECOMMEND REPEAT IMAGING.
[2018-04-13] MEDS: Vitamin THERAPEUTIC TAB PO SCH (09:21)
[2018-04-13] MEDS: Magnesium Hydroxide LIQ* 30 ML UDC PO SCH ×2 (09:21→19:38)
[2018-04-13] MEDS: Docusate CAP* 100 MG PO SCH ×2 (09:22→19:37)
--- NOTE | 2018-04-13 09:34 | PN ---
Progress Note - Progress Note Date of Service: 04/13/18 SOAP: Subjective: POD #1 Right JULIO, doing ok. Still feeling unsteady with standing, knee x-ray negative. Pain controlled, no nausea. Denies CP/SOB, f/c, calf pain Objective: Vitals: Temp Pulse Resp BP Pulse Ox 97.8 F 76 16 132/53 96 04/13/18 07:50 04/13/18 07:50 04/13/18 09:23 04/13/18 07:50 04/13/18 07:57 Gen: A&O x3, NAD at rest sitting at bedside Right hip: Dressing C/D/I. Thigh soft/NT. +f/e at knee, ankle and MTPs. N/V intact Labs: Laboratory Last Values Hgb 13.3 g/dl (12.0-16.0) 04/13/18 05:23 Hct 38 % (35-47) 04/13/18 05:23 Plt Count 173 10^3/ul (150-450) 04/13/18 05:23 MPV 8.8 um3 (7.4-10.4) 04/13/18 05:23 INR (Anticoag Therapy) 1.05 (0.77-1.02) H 04/13/18 05:23 Sodium 137 mmol/L (135-145) 04/13/18 05:23 Potassium 4.0 mmol/L (3.5-5.0) 04/13/18 05:23 Chloride 107 mmol/L (101-111) 04/13/18 05:23 Carbon Dioxide 26 mmol/L (22-32) 04/13/18 05:23 Anion Gap 4 mmol/L (2-11) 04/13/18 05:23 BUN 16 mg/dL (6-24) 04/13/18 05:23 Creatinine 0.79 mg/dL (0.51-0.95) 04/13/18 05:23 Est GFR ( Amer) 87.3 (>60) 04/13/18 05:23 Est GFR (Non-Af Amer) 72.2 (>60) 04/13/18 05:23 BUN/Creatinine Ratio 20.3 (8-20) H 04/13/18 05:23 Glucose 186 mg/dL (70-100) H 04/13/18 05:23 Hemoglobin A1c 5.5 % (4.0-5.6) 04/13/18 05:23 Calcium 8.8 mg/dL (8.6-10.3) 04/13/18 05:23 Assessment: POD #1 Right JULIO Plan: Lovenox for DVT ppx in hospitalGricelda on d/c PT/OT with posterior hip precautions Possible d/c home tomorrow
[2018-04-13] MEDS ORDERED: Nicotine Inhaler* 10 MG AMP INH PRN (09:55)
[2018-04-13] MEDS ORDERED: Mouth Piece, Nicotine* 1 EACH CARTRIDGE INH PRN (09:55)
[2018-04-13] MEDS: oxyCODONE TAB* 5 MG TAB PO PRN ×2 (11:05→21:00)
[2018-04-13] MEDS ORDERED: Enoxaparin(*) 40 MG/0.4 ML SYR SUBCUT SCH (12:00)
[2018-04-13] MEDS: Apixaban* 2.5 MG TAB PO SCH ×3 (13:04→19:37)
--- NOTE | 2018-04-13 13:20 | PN ---
Subjective Date of Service: 04/13/18 Interval History: Pt's post op R his doesn't hurt at all,but her R knee does. denies SOB, CP Objective Active Medications: Acetaminophen (Tylenol Tab*) 975 mg PO Q8H [facility] Last Admin: 04/13/18 10:03 Dose: Not Given Apixaban (Eliquis) 2.5 mg PO BID [facility] Last Admin: 04/13/18 13:06 Dose: 2.5 mg Bisacodyl (Dulcolax Supp*) 10 mg FL DAILY PRN PRN Reason: constipation Cyclobenzaprine HCl (Flexeril Tab*) 5 mg PO TID PRN PRN Reason: SPASMS Device (Nicotine Mouth Piece*) 1 each INH .USE WITH NICOTROL PRN PRN Reason: CRAVING Diphenhydramine HCl (Benadryl Iv*) 25 mg IV Q6H PRN PRN Reason: itching Docusate Sodium (Colace Cap*) 100 mg PO BID [facility] Last Admin: 04/13/18 09:22 Dose: 100 mg Lactated Ringer's (Lactated Ringers 1000 Ml Bag*) 1,000 mls @ 75 mls/hr IV PER RATE [facility] Last Admin: 04/12/18 17:58 Dose: 75 mls/hr Lisinopril (Prinivil Tab*) 10 mg PO DAILY [facility] Magnesium Hydroxide (Milk Of Magnesia Liq*) 30 ml PO BID [facility] Last Admin: 04/13/18 09:21 Dose: 30 ml Magnesium Hydroxide (Milk Of Magnesia Liq*) 30 ml PO Q6H PRN PRN Reason: constipation Morphine Sulfate (Morphine Inj (Syringe)) 4 mg IV Q2H PRN PRN Reason: PAIN Multivitamins (Theragran Tab*) 1 tab PO DAILY [facility] Last Admin: 04/13/18 09:21 Dose: 1 tab Nicotine (Nicotine Patch 14 Mg/24 Hr*) 1 patch TRANSDERM DAILY [facility] Last Admin: 04/13/18 09:22 Dose: Not Given Nicotine (Nicotine Inhaler*) 10 mg INH Q2H PRN PRN Reason: CRAVING Ondansetron HCl (Zofran Inj*) 4 mg IV Q6H PRN PRN Reason: nausea Oxycodone HCl (Roxycodone Tab*) 10 mg PO Q4H PRN PRN Reason: PAIN - [facility] Last Admin: 04/13/18 11:05 Dose: 10 mg Oxycodone/Acetaminophen (Percocet 5/325 Tab*) 1 tab PO Q4H PRN PRN Reason: PAIN Oxycodone/Acetaminophen (Percocet 5/325 Tab*) 2 tab PO Q4H PRN PRN Reason: PAIN Last Admin: 04/13/18 13:05 Dose: 2 tab Pharmacy Profile Note (Nicotine Patch Removal Note*) 1 note FOLLOW UP [address] Last Admin: 04/12/18 20:42 Dose: Not Given Vital Signs - 8 hr 04/13/18 04/13/18 04/13/18 05:27 07:50 07:57 Temperature 97.8 F Pulse Rate 76 Respiratory 16 18 18 Rate Blood Pressure 132/53 (mmHg) O2 Sat by Pulse 96 96 Oximetry 04/13/18 04/13/18 04/13/18 09:23 11:05 11:58 Temperature 98.0 F Pulse Rate 74 Respiratory 16 18 18 Rate Blood Pressure 138/60 (mmHg) O2 Sat by Pulse 94 Oximetry 04/13/18 13:05 Temperature Pulse Rate Respiratory 18 Rate Blood Pressure (mmHg) O2 Sat by Pulse Oximetry Oxygen Devices in Use Now: None Appearance: 67 yo F in nAD, aAOx3 Eyes: No Scleral Icterus, PERRLA Ears/Nose/Mouth/Throat: NL Teeth, Lips, Gums, Mucous Membranes Moist Neck: NL Appearance and Movements; NL JVP, Trachea Midline Respiratory: Symmetrical Chest Expansion and Respiratory Effort Cardiovascular: NL Sounds; No Murmurs; No JVD, RRR Abdominal: NL Sounds; No Tenderness; No Distention, No Hepatosplenomegaly Lymphatic: No Cervical Adenopathy Extremities: No Clubbing, Cyanosis, - - mild R leg edema . R knee tender to palpation, r thigh post op dressings not removed Skin: No Nodules or Sclerosis Neurological: Alert and Oriented x 3, NL Muscle Strength and Tone Result Diagrams: 04/13/18 05:23 04/13/18 05:23 Assess/Plan/Problems-Billing Assessment: 67 yo f with h/o HTN s/p elective R hip replacement - Patient Problems (1) Hip joint replacement status Comment: today with R knee pain. Knee X Ray unremarkable-as per ortho service (2) HTN (hypertension) Comment: BP controlled off meds today. Lisinopril to be restarted tomorrow. Lisinopril /HCTZ to be restarted at home. (3) Hyperglycemia Comment: adelina henriquez, since HbA1C at 5.5 (4) DVT prophylaxis Comment: annetta as per ortho Status and Disposition: thank you very much for the consult, will sign off and see pt prn
[2018-04-13] MEDS ORDERED: Morphine INJ* 2 MG/ML 1 ML SYRINGE (TWO MG - NEW SYRINGE VERSION) IV PRN (14:08)
--- NOTE | 2018-04-13 16:50 | OP ---
OPERATIVE REPORT: DATE OF OPERATION: 04/12/18 DATE OF : 46 ATTENDING SURGEON: Rossana Clark MD [employer]: CHRISTOPHER Cheema Mr. Osorio did help throughout the procedure with preparation of the leg, wound retraction, manipulat ion of the hip, and wound closure. ANESTHESIOLOGIST: Dr. Contreras ANESTHESIA: Spinal. PRE-OP DIAGNOSIS: Severe end-stage osteoarthritis of the right hip joint. POST-OP DIAGNOSIS: Severe end-stage osteoarthritis of the right hip joint. OPERATIVE PROCEDURE: Right total hip arthroplasty. BRIEF HISTORY/INDICATIONS: Ms. Garza is a 67-year-old female with years of increasingly severe righ t hip pain. Radiographs showed mihu-ql-gwdi arthritis with extensive osteophyte formation. She fail ed conservative treatment with the antiinflammatories, home exercise program, and pain medication. D ue to continued pain and decreased quality of life, she elected to undergo right total hip arthroplas ty. Informed consent was obtained from the patient. She understood the risks of surgery included bu t were not limited to bleeding, infection, damage to nearby structures, continued pain, need for furt her surgery, intraoperative fracture, nerve palsy, hardware failure or loosening, dislocation, leg le ngth discrepancy, stroke, heart attack, blood clot, and . She wished to proceed. COMPLICATIONS: None. ESTIMATED BLOOD LOSS: 300 cc. SPECIMENS: Femoral head and acetabular reaming sent to Pathology. HARDWARE USED: This is uncemented [place] total hip arthroplasty hardware. For the cup, a Tritanium cluster hole shell 50D, a single 20-mm screw was used. For the polyethylene, a Trident X3 0-degree polyethylene insert, 32D with TMZF size 2 with a 132-degree neck. For the head, a Biolox delta ceram ic V40 femoral head 32 +4. INTRAOPERATIVE FINDINGS: Intraoperatively, the patient was noted to have severe osteoarthritis with complete loss of cartilage along the femoral head and acetabulum, had an extensive osteophyte formati on along the superolateral and anterior acetabulum. DESCRIPTION OF PROCEDURE: Ms. Garza was identified in the preanesthesia unit. Her right lower extre mity was signed as the correct operative side. Informed consent was signed and placed in the chart. The patient was taken to the operating room and placed under spinal anesthesia. A Goncalves catheter wa s placed. She was placed in the left lateral decubitus position on the peg board. All bony prominen molly were well padded. Right lower extremity was prepped and draped in the usual sterile fashion. Pr eop time-out was made to correctly identify the patient's side and site. Appropriate perioperative a ntibiotics were given within 1 hour of incision. A standard posterior hip incision was made with the 10 blade and carried down to the lateral fascial layer. Lateral fascial layer was incised in line of the skin incision. The Charnley retractor was p laced. The piriformis and conjoint tendons were elevated off the posterolateral femur using the elec trocautery and tagged with #5 Ethibond. Next, electrocautery was used to make a standard posterolate ral capsular flap and this was also tagged with #5 Ethibond. The hip was carefully dislocated. Less er troch to center of the femoral head measured 49 mm. Oscillating saw was used to make the appropria te femoral neck cut. The femoral head was removed. The femur was retracted anteriorly. After appro priate placement of retractors, the acetabulum was well visualized. A long-handled knife was used to sharply remove any remaining labrum from the acetabular rim. A significant amount of acetabular ost eophyte was noted. The acetabulum was sequentially reamed up to a size 49. A 49 reamer obtained a b leeding subchondral bone bed. Final implant chosen was a Tritanium cluster hole shell 50D. This was impacted into the acetabular without difficulty. Stability of the cup was excellent with appropriat e anteversion and abduction angle. A single 20-mm screw was placed in the superior and posterior quad rant for extra stability. A Trident X3 polyethylene liner 32D was chosen. This was locked in the po sition into the acetabulum. Stability of the liner was checked and rechecked and noted to be stable. Next, attention was turned to preparation of the proximal canal. A canal finder was used to enter th e proximal femur. Femoral canal was noted to be slightly off center compared to normal due to the ev ersion of the neck. The stem was sequentially broached up to a size 2. Size 2 broach had good fit w ith appropriate anteversion. A 32+0 head was chosen and lesser troch to center of the femoral head m easured 47 mm, therefore a 32+4 head was chosen. Lesser troch to the center of the femoral head kings ured 50 mm. The hip was reduced and taken through range of motion. The hip was stable in all positio ns. Soft tissue tension and leg lengths were deemed to be appropriate. The hip was dislocated and a ll trials were carefully removed. Final implant chosen was an Accolade TMZF size 2 with a 132- degre e neck. This was impacted into the femoral canal without difficulty. The stem was stable with appro priate anteversion. A Biolox delta ceramic V40 femoral head 32+4 was chosen as the final femoral hea d. This was impacted onto the femoral neck. The lesser troch to center of the femoral head final kings urement was 50 mm. The hip was reduced and taken through a range of motion. The hip was stable in all positions. The w ound was copiously irrigated with sterile saline. Previously tagged capsule and tendons were reappro ximated to the posterolateral femur through 2 trochanteric drill holes. The lateral fascial layer wa s closed using interrupted #1 Vicryls. The rest of the incision was closed in a layered fashion usin g 0 and 2- 0 Vicryls. Skin was closed using running 3-0 Monocryl suture and Dermabond. Sterile Adapt ic, 4x4s, and paper tape were used to cover the incision. The patient's anesthesia was reversed witho ut difficulty. She was taken to the PACU in stable condition. Intended weightbearing will be weightb earing as tolerated. Intended DVT prophylaxis will be Lovenox while in the hospital and at home on [facility]. [id number]/[facility] #: [id number]
[2018-04-13] MEDS: Nicotine Patch Removal NOTE FOLLOW UP SCH (19:44)
[2018-04-14] MEDS: oxyCODONE/Acetamin 5/325 MG* TAB PO PRN ×2 (04:00→07:58)
[2018-04-14] MEDS: Acetaminophen TAB* 325 MG PO SCH ×2 (04:32→10:21)
[2018-04-14 06:03] LABS: Hematocrit 34 % (35-47); Hemoglobin 12.2 g/dl (12.0-16.0); Mean Platelet Volume 8.8 um3 (7.4-10.4); Platelet Count 136 10^3/ul (150-450)
[2018-04-14 06:14] LABS: INR 1.17 (0.77-1.02)
[2018-04-14] MEDS: Apixaban* 2.5 MG TAB PO SCH (08:38)
[2018-04-14] MEDS: Docusate CAP* 100 MG PO SCH (08:38)
[2018-04-14] MEDS: Vitamin THERAPEUTIC TAB PO SCH (08:38)
[2018-04-14] MEDS: Magnesium Hydroxide LIQ* 30 ML UDC PO SCH (08:39)
[2018-04-14] MEDS: Nicotine PATCH 14 MG/24 HR* PATCH TRANSDERM SCH (08:39)
[2018-04-14] MEDS ORDERED: Lisinopril TAB* 10 MG PO SCH (09:00)
--- NOTE | 2018-04-14 10:25 | PN ---
Progress Note - Progress Note Date of Service: 04/14/18 SOAP: Subjective: POD #2 Right JULIO. Doing ok, still with c/o pain in knee but feels more steady than yesterday. Denies calf pain, CP/SOB, f/c Objective: Vitals: Temp Pulse Resp BP Pulse Ox 98.4 F 75 18 140/56 97 04/14/18 07:33 04/14/18 07:33 04/14/18 10:14 04/14/18 07:33 04/14/18 08:00 Gen: A&O x3, NAD at rest Right Hip: Incision C/D/I, mild ecchymosis, no erythema. +f/e at knee, ankle and MTPs. N/V intact Labs: Laboratory Results - last 24 hr 04/14/18 04/14/18 05:14 05:14 Hgb 12.2 Hct 34 L Plt Count 136 L MPV 8.8 INR (Anticoag Therapy) 1.17 H Assessment: POD #2 Right JULIO Plan: D/C home today Eliquis 2.5mg BID for DVT ppx Percocet for pain Home nursing for wound checks/PT F/u with Dr. Clark 10-14 days
[2018-04-14] MEDS: oxyCODONE TAB* 5 MG TAB PO PRN (10:51)
[2018-04-14 11:32] VITALS: BP 145/64
--- NOTE | 2018-04-14 15:54 | DS ---
AMENDED REPORT NOW INCLUDES COSIGNER DESIGNATION - ESIGNED BEFORE ADJUSTMENT DISCHARGE SUMMARY: DATE OF ADMISSION: 04/12/18 DATE OF DISCHARGE: 04/14/18 PROVIDER: Rossana Clark MD * (DICTATED BY CHRISTOPHER LEE) ADMITTING DIAGNOSIS: Severe end-stage osteoarthritis of the right hip. DISCHARGE DIAGNOSIS: Severe end-stage osteoarthritis of the right hip, status post right total hip arthroplasty. SECONDARY DIAGNOSIS: Hypertension. HISTORY OF PRESENT ILLNESS: Ms. Garza is a 67-year-old female with complaints of ongoing pain in the right hip secondary to arthritis. She failed conservative management and elected to proceed with right total hip arthroplasty. HOSPITAL COURSE: On 04/12/18, the patient was admitted to [facility] and underwent a successful right total hip arthroplasty. She recovered briefly in the postanesthesia care unit and was transferred to the short-stay surgical unit in stable condition. Pain was controlled with oral and IV pain medication on the day of surgery. On postop day 1, the patient complained of pain and weakness in her knee and thigh and x-ray of the knee was obtained, showed no acute fracture and no gross deformities. Pain was controlled with oral pain medication. She had some difficulty participating in therapy due to the weakness in her knee. H and H was 13.3 and 38, INR was 1.05. The patient did not want Coumadin and was switched to Eliquis for DVT prophylaxis. She was taking 2.5 mg b.i.d. Goncalves catheter was removed. She was able to void without difficulty. On postop day 2, the patient felt more stable with ambulation despite some pain in her knee and was able to participate with therapy. She had a stable H and H, 12.2 and 34. She was found stable for discharge home. Throughout her hospital course, she remained normotensive and afebrile. DISCHARGE CONDITION: Stable. DISCHARGE MEDICATIONS: The patient will use 1. Percocet 5/325 mg 1 to 2 tabs p.o. q.4 to 6 hours p.r.n. pain. 2. Colace 100 mg p.o. b.i.d. 3. Eliquis 2.5 mg p.o. b.i.d. She will resume her home medications: Lisinopril/HCTZ 10/12.5 one tab p.o. daily. DISCHARGE INSTRUCTIONS: The patient will be weightbearing as tolerated with the use of a rolling walker. She will have home physical therapy and visiting nurse services for wound check. She will keep her incision clean and dry until postop day 4. At that time, she may shower normally and wash the incision with soap and water, apply dry dressing as needed. She will avoid submerging her incision in the bath tub, hot tub or swimming pool. She will call the office with any problems or concerns. She will go directly to the emergency room with any chest pain, shortness of breath, fever greater than 101.5, calf pain or swelling. She will follow up in the office in 10 to 14 days postoperatively. CHRISTOPHER LEE [id number]/[facility] #: [id number] [facility]
== END 2018-04-14 13:45 | disposition home or self-care (01) | DRG 470 ==
LOC: AA 08:39 → SSU 14:09
PROVIDERS: ADMIT Orthopaedic Surgery Adult Reconstructive Orthopaedic Surgery; ATTEND Orthopaedic Surgery Adult Reconstructive Orthopaedic Surgery
PROC: 0SR904A Replacement of Right Hip Joint with Ceramic on Polyethylene Synthetic Substitute, Uncemented, Open Approach (ICD-10-PCS; principal; 2018-04-12 11:15)
DX: M16.11 Unilateral primary osteoarthritis, right hip (principal); M51.06 Intervertebral disc disorders with myelopathy, lumbar region; I10 Essential (primary) hypertension; F17.210 Nicotine dependence, cigarettes, uncomplicated; J44.9 Chronic obstructive pulmonary disease, unspecified; M93.90 Osteochondropathy, unspecified of unspecified site; M85.80 Other specified disorders of bone density and structure, unspecified site; E66.9 Obesity, unspecified; R73.9 Hyperglycemia, unspecified; M25.751 Osteophyte, right hip; Z98.51 Tubal ligation status; Z90.49 Acquired absence of other specified parts of digestive tract; Z88.0 Allergy status to penicillin; Z88.2 Allergy status to sulfonamides; Z91.030 Bee allergy status; Z79.01 Long term (current) use of anticoagulants; Z68.33 Body mass index [BMI] 33.0-33.9, adult; Z80.8 Family history of malignant neoplasm of other organs or systems
CPT/HCPCS: 36415; 72170; 80048; 83036; 85014; 85018; 85049; 85610; 88304; 88311; A9270-GY; C1713; C1776; G8978-GP-CJ; G8978-GP-CL; G8979-GP-CI; G8980-GP-CJ; G8987-GO-CL; G8988-GO-CI; J1100; J1170; J1650; J2250; J2270; J2405; J2795; J3010

== ENCOUNTER 2018-09-09 12:56 | Emergency (ER) | payer MEDICARE ==
[2018-09-09 13:10] VITALS: BP 124/58
--- NOTE | 2018-09-09 13:26 | UC ---
Respiratory Complaint HPI - HPI Summary HPI Summary: 67-year-old woman here with a chief complaint of upper respiratory tract infection symptoms for 3 weeks and now having splinting chest pain which started this morning. Pain is on the right side of her chest. Its lower thoracic. It's worse when she twists turns bends coughs and takes a deep breath. No fevers. She is making some sputum and having rhinorrhea. Does not feel short of breath at rest. No complaint of any abdominal pain. No rash. - History of Current Complaint Chief Complaint: UCGeneralIllness Stated Complaint: RUNNY NOSE CONGESTION COUGH Time Seen by Provider: 09/09/18 13:10 Hx Last Menstrual Period: n/a Pain Intensity: 6 - Allergies/Home Medications Allergies/Adverse Reactions: Allergies Allergy/AdvReac Type Severity Reaction Status Date / Time bee venom protein (honey bee) Allergy Hives Verified 09/09/18 13:10 Penicillins Allergy Hives Verified 09/09/18 13:10 Sulfa (Sulfonamide Allergy Hives Verified 09/09/18 13:10 Antibiotics) PMH/Surg Hx/FS Hx/Imm Hx Previously Healthy: Yes Cardiovascular History: Hypertension Other History Of: Negative For: HIV, Hepatitis B, Hepatitis C, Anticoagulant Therapy - Surgical History Surgical History: Yes Surgery Procedure, Year, and Place: CHOLECYSTECTOMY - Family History Known Family History: Positive: Diabetes Negative: Cardiac Disease, Hypertension, Renal Disease - Social History Alcohol Use: None Substance Use Type: None Smoking Status (MU): Light Every Day Tobacco Smoker Type: Cigarettes Amount Used/How Often: 1/2 PPD Household Exposure Type: Cigarettes - Immunization History Most Recent Influenza Vaccination: never Most Recent Pneumonia Vaccination: never Review of Systems All Other Systems Reviewed And Are Negative: Yes Constitutional: Positive: Negative Skin: Positive: Negative Eyes: Positive: Negative ENT: Positive: Nasal Discharge, Sinus Congestion Respiratory: Positive: Cough Cardiovascular: Positive: Chest Pain Gastrointestinal: Positive: Negative Motor: Positive: Negative Neurovascular: Positive: Negative Musculoskeletal: Positive: Negative Neurological: Positive: Negative Psychological: Positive: Negative Is Patient Immunocompromised?: No Physical Exam Triage Information Reviewed: Yes Appearance: No Pain Distress, Well-Nourished, Ill-Appearing - mild Vital Signs: Initial Vital Signs Temp 98.9 F 09/09/18 13:07 Pulse 81 09/09/18 13:07 Resp 18 09/09/18 13:07 BP 124/58 09/09/18 13:07 Pulse Ox 98 09/09/18 13:07 Vital Signs Reviewed: Yes Eye Exam: Normal Eyes: Positive: Conjunctiva Clear ENT: Positive: Pharynx normal, Nasal congestion, Nasal drainage, TMs normal Neck exam: Normal Neck: Positive: Supple Respiratory: Positive: Lungs clear, Normal breath sounds, No respiratory distress, Other: - TENDER TO PALPATION RT LOWER POSTERIOR RIBS Cardiovascular: Positive: RRR Abdomen Description: Positive: Nontender, Soft Bowel Sounds: Positive: Present Musculoskeletal Exam: Normal Musculoskeletal: Positive: Strength Intact, ROM Intact, No Edema, Other: - NO CALF TENDERNESS Neurological Exam: Normal Neurological: Positive: Alert, Muscle Tone Normal Psychological Exam: Normal Psychological: Positive: Age Appropriate Behavior Skin Exam: Normal UC Diagnostic Evaluation - Laboratory O2 Sat by Pulse Oximetry: 98 Respiratory Course/Dx - Course Course Of Treatment: Order Information: CHEST PA LAT 2 VWS. Accession Number: [id number]. CPT: 54505. INDICATION: Chest pain/URI. COMPARISON: 318 chest radiograph. TECHNIQUE: Dual-energy PA and lateral views of the chest were obtained. FINDINGS: The lungs are clear. There is no pleural effusion. The cardiomediastinal silhouette is within normal limits. A cholecystectomy has been performed. Osseous structures are unremarkable. IMPRESSION: No acute cardiopulmonary process. . <Electronically signed by Alvin Mejia MD in OV> 09/09/18 1189. I discussed the x-ray report with patient. No pneumonia or pneumothorax was seen. Pain is on the right side it's worse with coughing or moving or bending. There is no rash. We discussed the possibility of a pulmonary embolus and I let the patient know that we did not check for that today and we cannot check for that here in [place] can get that checked for emergency department. At this time given the fact that the patient's had an upper respiratory tract infection for 3 weeks and has been coughing quite a bit the cause of the splinting chest pain is most likely related to the infection. This was all discussed with the patient and at this time she prefers to not go to the emergency department for further evaluation. We discussed that if her pain continued are she got worse she is to go to the emergency department for further evaluation and care. - Differential Dx/Diagnosis Provider Diagnosis: Chest pain, Acute bronchitis Discharge - Sign-Out/Discharge Documenting (check all that apply): Patient Departure All imaging exams completed and their final reports reviewed: Yes - Discharge Plan Condition: Stable Disposition: HOME Prescriptions: Azithromyxin VALERIE (NF) [Z-Valerie (Zithromax) 250 mg tabs #6] 2 tab PO .TODAY, THEN 1 DAILY #6 tab Patient Education Materials: Chest Pain (ED), Acute Bronchitis (ED) Referrals: [facility] [place] PHYSICIAN REFERRAL [Outside] Additional Instructions: FOLLOW UP WITH YOUR DOCTOR. TAKE IBUPROFEN 600MG EVERY 6 HOURS NEEDED. GO TO THE EMERGENCY DEPARTMENT FOR ANY WORSENING OF YOUR CONDITION; YOUR PAIN DOES NOT IMPROVE, CHEST PAIN, SHORTNESS OF BREATH, FEVER, YOU FEEL ILL OR QUESTIONS OR CONCERNS. - Billing Disposition and Condition Condition: STABLE Disposition: Home
== END 2018-09-09 14:00 | disposition home or self-care (01) ==
LOC: UCCORT 12:56
DX: R07.9 Chest pain, unspecified (principal); J20.9 Acute bronchitis, unspecified; Z88.0 Allergy status to penicillin; Z88.1 Allergy status to other antibiotic agents; I10 Essential (primary) hypertension; F17.210 Nicotine dependence, cigarettes, uncomplicated
CPT/HCPCS: 71046; 99212; G0463

== ENCOUNTER 2022-06-01 10:25 | Observation (INO) ==
[2022-06-01 12:18] LABS: ABS Eosinophils 0.1 10^3/ul (0-0.6); ABS Lymphocytes 1.1 10^3/ul (1.0-4.8); ABS Monocytes 0.5 10^3/ul (0-0.8); ABS Neutrophils 4.4 10^3/ul (1.5-7.7); Eosinophil % 2.2 %; Hematocrit 44 % (35-47); Lymphocyte % 17.4 %; Mean Corpuscular HGB Conc 34 g/dL (31-36); Mean Corpuscular Hemoglobin 30 pg (27-31); Mean Corpuscular Volume 87 fL (80-97); Mean Platelet Volume 8.2 fL (7.4-10.4); Platelet Count 202 10^3/uL (150-450); Red Blood Count 4.98 10^6 /uL (3.70-4.87); Red Cell Distribution Width 13 % (10-15); White Blood Count 6.2 10^3/uL (3.5-10.8)
[2022-06-01 12:42] LABS: INR 1.23 (0.89-1.11)
[2022-06-01 13:16] LABS: High Sensitivity Troponin 1 Hr 7 pg/mL (<15)
[2022-06-01 13:36] LABS: Albumin 3.8 g/dL (3.2-5.2); Albumin/Globulin Ratio 1.4 (1-3); Calcium 9.4 mg/dL (8.6-10.3); Globulin 2.8 g/dL (2-4); Magnesium 1.9 mg/dL (1.9-2.7); Potassium 4.1 mmol/L (3.5-5.0); Total Bilirubin 0.6 mg/dL (0.2-1.0); Total Protein 6.6 g/dL (6.4-8.9); eGFR CKD-EPI 93.6 (>60)
[2022-06-01] MEDS ORDERED: Iohexol 350 (CONTRAST) 500 ML MDV IV ONE (13:59)
[2022-06-01] MEDS: cefTRIAXone 1 gm/50 mL D5W 1 GM/50 ML BAG IV SCH (18:30)
[2022-06-01] MEDS ORDERED: Enoxaparin 40 MG/0.4 ML SYR SUBCUT SCH (19:00)
[2022-06-01] MEDS: Azithromycin 500 mg/250 ml NS 500 MG/250 ML BAG IVPB SCH (19:35)
[2022-06-01] MEDS ORDERED: Albuterol HFA INHALER 8 gm MDI INH PRN (19:40)
[2022-06-02 06:08] LABS: Albumin 3.5 g/dL (3.2-5.2); Albumin/Globulin Ratio 1.4 (1-3); Calcium 8.8 mg/dL (8.6-10.3); Globulin 2.5 g/dL (2-4); Magnesium 1.8 mg/dL (1.9-2.7); Potassium 3.9 mmol/L (3.5-5.0); Total Bilirubin 0.5 mg/dL (0.2-1.0); eGFR CKD-EPI 94.7 (>60)
[2022-06-02] MEDS ORDERED: Magnesium Sulfate 2 gm BAG 2 GM/50 ML BAG IVPB ONE (07:25)
[2022-06-02] MEDS: Azithromycin 500 mg/250 ml NS 500 MG/250 ML BAG IVPB SCH (16:58)
[2022-06-02 17:01] LABS: Body Fluid Color Red; Body Fluid Source Pleural Fluid
[2022-06-02 17:03] LABS: Body Fluid Appearance Bloody
[2022-06-02 17:19] LABS: Body Fluid WBC 1893 /mcL
[2022-06-02 18:08] LABS: Body Fluid Mono 25 %; Body Fluid Total Cells Counted 200
[2022-06-02] MEDS: cefTRIAXone 1 gm/50 mL D5W 1 GM/50 ML BAG IV SCH (21:07)
[2022-06-03 11:37] VITALS: BP 118/76
[2022-06-04 11:34] LABS: Glucose, BF 135 mg/dL
[2022-06-04 11:37] LABS: Lactate Dehydrogenase, BF 165 U/L
[2022-06-04 12:09] LABS: Albumin, BF 2.4 g/dL; Fluid Type, Albumin PLEURAL
[2022-06-05 14:41] LABS: Fluid Type, Protein, Total PLEURAL; Total Protein, BF 3.7 g/dL
== END 2022-06-03 16:15 | disposition home or self-care (01) ==
LOC: MERGE 10:25 → ED 10:25 → EDHOLD 10:25 → MED 20:37
PROVIDERS: ADMIT Internal Medicine; ATTEND Internal Medicine

== ENCOUNTER 2022-07-26 15:12 | Inpatient (IN) ==
[2022-07-26 15:45] LABS: ABS Basophils 0.1 10^3/ul (0-0.2); ABS Lymphocytes 0.8 10^3/ul (1.0-4.8); ABS Monocytes 0.7 10^3/ul (0-0.8); ABS Neutrophils 4.3 10^3/ul (1.5-7.7); Eosinophil % 0.5 %; Hematocrit 38 % (35-47); Hemoglobin 12.7 g/dL (12.0-16.0); Lymphocyte % 13.6 %; Mean Corpuscular HGB Conc 33 g/dL (31-36); Mean Corpuscular Hemoglobin 28 pg (27-31); Mean Corpuscular Volume 84 fL (80-97); Mean Platelet Volume 7.9 fL (7.4-10.4); Nucleated Red Blood Cells % 0.1; Platelet Count 277 10^3/uL (150-450); Red Blood Count 4.53 10^6 /uL (3.70-4.87); Red Cell Distribution Width 13 % (10-15); White Blood Count 5.8 10^3/uL (3.5-10.8)
[2022-07-26 15:53] LABS: INR 1.42 (0.89-1.11)
[2022-07-26 17:03] LABS: Albumin 3.4 g/dL (3.2-5.2); Albumin/Globulin Ratio 1.1 (1-3); Calcium 9.5 mg/dL (8.6-10.3); Globulin 3.1 g/dL (2-4); Magnesium 1.8 mg/dL (1.9-2.7); Potassium 4.3 mmol/L (3.5-5.0); Total Protein 6.5 g/dL (6.4-8.9); eGFR CKD-EPI 95.9 (>60)
[2022-07-26] MEDS ORDERED: Magnesium Sulfate 2 gm BAG 2 GM/50 ML BAG IVPB ONE (17:04)
[2022-07-26 17:10] LABS: High Sensitivity Troponin 1 Hr 11 pg/mL (<15)
[2022-07-26 17:43] LABS: TSH Ultra Thyroid Stim Horm 0.03 mcIU/mL (0.34-5.60)
[2022-07-26] MEDS ORDERED: Iohexol 350 (CONTRAST) 500 ML MDV IV ONE (17:49)
[2022-07-26 18:05] LABS: Total Bilirubin 0.5 mg/dL (0.2-1.0)
[2022-07-26] MEDS ORDERED: Morphine 2 MG/ML SYRINGE IV PRN (18:09)
[2022-07-26] MEDS ORDERED: Albuterol HFA INHALER 8 gm MDI INH PRN (18:27)
[2022-07-26] MEDS ORDERED: Furosemide 40 mg/4 ml IV VIAL IV ONE (18:47)
[2022-07-26] MEDS: Enoxaparin 40 MG/0.4 ML SYR SUBCUT SCH (21:07)
[2022-07-27 01:25] LABS: Urine Appearance Clear; Urine Bilirubin Negative (Negative); Urine Blood Negative (Negative); Urine Color Straw; Urine Glucose Negative (Negative); Urine Ketones Negative (Negative); Urine Nitrite Negative (Negative); Urine Protein Negative (Negative); Urine Specific Gravity 1.011 (1.002-1.030); Urine Urobilinogen Negative (Negative)
[2022-07-27 05:28] LABS: ABS Lymphocytes 0.6 10^3/ul (1.0-4.8); ABS Monocytes 0.5 10^3/ul (0-0.8); ABS Neutrophils 3.1 10^3/ul (1.5-7.7); Eosinophil % 1.1 %; Hematocrit 39 % (35-47); Hemoglobin 12.8 g/dL (12.0-16.0); Lymphocyte % 13.9 %; Mean Corpuscular HGB Conc 33 g/dL (31-36); Mean Corpuscular Hemoglobin 28 pg (27-31); Mean Corpuscular Volume 84 fL (80-97); Mean Platelet Volume 7.8 fL (7.4-10.4); Platelet Count 238 10^3/uL (150-450); Red Blood Count 4.61 10^6 /uL (3.70-4.87); Red Cell Distribution Width 13 % (10-15); White Blood Count 4.3 10^3/uL (3.5-10.8)
[2022-07-27 05:37] LABS: Activated Partial Thrombo Time 37.8 seconds (26.0-38.0); INR 1.37 (0.89-1.11)
[2022-07-27 06:31] LABS: Calcium 9.1 mg/dL (8.6-10.3); Phosphorus 4.9 mg/dL (2.5-5.0); Potassium 3.8 mmol/L (3.5-5.0); eGFR CKD-EPI 94.7 (>60)
[2022-07-27] MEDS ORDERED: Potassium Chlor 20 meq TAB.ER PO ONE (07:23)
[2022-07-27] MEDS ORDERED: Metoprolol Tartrate 5 mg VIAL 5 ml VIAL (1 mg/ml) IV PRN (11:16)
[2022-07-27] MEDS: Morphine ORAL CONCENTRATE 5 MG/0.25 ML ORAL.SYRIN SL PRN ×2 (11:36→18:22)
[2022-07-27] MEDS: Enoxaparin 40 MG/0.4 ML SYR SUBCUT SCH (19:30)
[2022-07-28] MEDS ORDERED: Morphine ORAL CONCENTRATE 5 MG/0.25 ML ORAL.SYRIN PO PRN (10:49)
[2022-07-28 12:03] VITALS: BP 108/64
== END 2022-07-28 13:40 | disposition home or self-care (01) | DRG 189 ==
LOC: ED 15:12 → EDHOLD 17:42 → ICU 19:17 → MED 07-27 22:04
PROVIDERS: ADMIT Surgery Surgical Critical Care; ATTEND Surgery Surgical Critical Care